=== PATIENT | male | born 1980 | race Caucasian/White ===

== ENCOUNTER 2024-08-31 13:41 | Inpatient (IN) | payer MEDICAID ==
[~2024-08-31] VITALS: Ht 163.8 cm; Wt 110.3 kg
[2024-08-31 13:46] VITALS: BP 135/80; PULSE 59; RESP 16; TEMP 98.5; O2SAT 99
[2024-08-31] MEDS: ONDANSETRON 4 MG/2 ML VIAL IVP ONE (14:16)
[2024-08-31] MEDS: NACL 0.9% 1,000 ML IV ONE (14:18)
[2024-08-31 14:41] LABS: BASOPHILS % (AUTO) 0.1 % (0.0-2.0); HEMOGLOBIN 16.6 g/dL (12.0-18.0); MEAN CORPUSCULAR HEMOGLOBIN 30 pg (27-31); MEAN CORPUSCULAR HGB CONC 34 g/dL (33-37); MEAN CORPUSCULAR VOLUME 89.1 fL (80-94); MONOCYTES # (AUTO) 0.2 K/uL (0.8-1.0); MONOCYTES % (AUTO) 1.9 % (1.7-9.3); NEUTROPHILS # (AUTO) 11.2 K/uL (1.8-7.7); PLATELET COUNT (AUTO) 344 K/uL (140-450); RED BLOOD CELL COUNT(AUTO) 5.51 MIL/uL (4.20-6.10); RED CELL DISTRIBUTION WIDTH 14.4 % (11.6-13.7); WHITE BLOOD COUNT (AUTO) 12.5 K/uL (4.8-10.8)
[2024-08-31 14:44] LABS: CALCIUM 9.3 mg/dL (8.5-10.1); CARBON DIOXIDE 28.8 mmol/L (21-32); CREATININE 1.1 mg/dL (0.6-1.3); POTASSIUM 3.8 mmol/L (3.5-5.1)
[2024-08-31 14:47] LABS: INR 0.98 (0.8-1.2); PARTIAL THROMBOPLASTIN TIME 23.9 secs (22-35.6); PROTHROMBIN TIME 10.3 secs (10.8-13.4)
[2024-08-31 14:59] LABS: ALANINE AMINOTRANSFERASE 563 U/L (12-78); ALBUMIN 3.9 g/dL (3.4-5.0); ALKALINE PHOSPHATASE 251 U/L (50-136); ASPARTATE AMINOTRANSFERASE 222 U/L (15-37); BILIRUBIN,DIRECT 1.3 mg/dL (0.0-0.3); LIPASE 2910 U/L (16-77); TOTAL BILIRUBIN 1.8 mg/dL (0.0-1.0); TOTAL PROTEIN, SERUM 7.9 g/dL (6.4-8.2)
[2024-08-31] MEDS: MORPHINE SULFATE 4 MG/ML SYR IVP ONE (15:03)
[2024-08-31] MEDS ORDERED: LORazepam 1 MG TAB PO PRN (15:55)
[2024-08-31] MEDS ORDERED: MAG SULF 2000 MG/WATER PREMIX 50 ML IV PRN (15:55)
[2024-08-31] MEDS ORDERED: DEXTROSE 50% 50 ML SYR IVP PRN (16:00)
[2024-08-31] MEDS: NACL 0.9% 1,000 ML IV SCH (16:14)
[2024-08-31] MEDS: BLOOD GLUCOSE MONITORING 1 DEV DEV FS SCH (17:10)
[2024-08-31] MEDS: INSULIN LISPRO SLIDING SCALE 100 UNITS/ML VIAL SUBQ PRN (17:15)
[2024-08-31 18:51] LABS: CHOL/HDL RATIO 5.1 (1-4.5)
[2024-08-31 20:30] VITALS: BP 130/79; PULSE 70; RESP 18; TEMP 97.3; O2SAT 98
[2024-08-31] MEDS: PIPERACILLIN/TAZOBACTAM 2.25 GM in DEXTROSE 5% 50 ML IV SCH (21:17)
[2024-08-31] MEDS: PIPERACILLIN/TAZOBACTAM 2.25 GM VIAL IV ONE (21:23)
[2024-09-01] VITALS (7 sets, daily range): BP systolic 106–138; BP diastolic 60–78; PULSE 64–97; RESP 18; TEMP 97.4–99.8; O2SAT 96–99
[2024-09-01] MEDS: MORPHINE SULFATE 2 MG/ML SYR IVP PRN (00:07)
[2024-09-01] MEDS: PIPERACILLIN/TAZOBACTAM 2.25 GM VIAL IV ONE (04:26)
[2024-09-01 06:52] LABS: BASOPHILS % (AUTO) 0.2 % (0.0-2.0); EOSINOPHILS % (AUTO) 0.1 % (0.0-4.0); HEMATOCRIT 44.1 % (36-52); LYMPHOCYTES # (AUTO) 1.6 K/uL (2.0-11.5); LYMPHOCYTES % (AUTO) 14.3 % (20.5-51.1); MEAN CORPUSCULAR HEMOGLOBIN 30 pg (27-31); MEAN CORPUSCULAR HGB CONC 34 g/dL (33-37); MEAN CORPUSCULAR VOLUME 87.7 fL (80-94); MONOCYTES # (AUTO) 0.7 K/uL (0.8-1.0); MONOCYTES % (AUTO) 6.5 % (1.7-9.3); NEUTROPHILS # (AUTO) 8.9 K/uL (1.8-7.7); NEUTROPHILS % (AUTO) 78.9 % (42.2-75.2); PLATELET COUNT (AUTO) 320 K/uL (140-450); RED BLOOD CELL COUNT(AUTO) 5.03 MIL/uL (4.20-6.10); RED CELL DISTRIBUTION WIDTH 14.5 % (11.6-13.7); WHITE BLOOD COUNT (AUTO) 11.3 K/uL (4.8-10.8)
[2024-09-01 07:16] LABS: ANION GAP 13.1 (8-16); CARBON DIOXIDE 24.3 mmol/L (21-32); CREATININE 0.9 mg/dL (0.6-1.3); PHOSPHORUS 3.2 mg/dL (2.5-4.9); POTASSIUM 3.4 mmol/L (3.5-5.1); TOTAL BILIRUBIN 1.1 mg/dL (0.0-1.0); TOTAL PROTEIN, SERUM 6.4 g/dL (6.4-8.2)
[2024-09-01] MEDS: PIPERACILLIN/TAZOBACTAM 3.375 GM in DEXTROSE 5% 50 ML IV SCH (12:12)
[2024-09-01] MEDS ORDERED: HYDROmorphone 1 MG/ML AMP IVP PRN (12:45)
[2024-09-01] MEDS: LACTATED RINGERS 1,000 ML IV SCH (13:04)
[2024-09-01] MEDS: KCL 20 MEQ IN 100 mL PREMIX 200 ML IV PRN (18:27)
[2024-09-01] MEDS ORDERED: VANCOMYCIN PER PHARMACY MC PRN (18:55)
[2024-09-02] VITALS: BP 115/72; PULSE 87; PULSE 93; RESP 19; TEMP 98.9; O2SAT 95
[2024-09-02] MEDS: VANCOMYCIN 1GM/DEXT 5% PREMIX 200 ML IV ONE (00:28)
[2024-09-02] MEDS: VANCOMYCIN 1,000 MG VIAL ONE (02:50)
[2024-09-02 04:00] VITALS: BP 103/62; PULSE 91; PULSE 92; RESP 17; TEMP 101.8; O2SAT 95
[2024-09-02] MEDS: ACETAMINOPHEN 325 MG TAB PO PRN (04:21)
[2024-09-02 06:47] LABS: BASOPHILS % (AUTO) 0.3 % (0.0-2.0); HEMATOCRIT 41.7 % (36-52); HEMOGLOBIN 14.1 g/dL (12.0-18.0); LYMPHOCYTES # (AUTO) 1.8 K/uL (2.0-11.5); LYMPHOCYTES % (AUTO) 11.1 % (20.5-51.1); MEAN CORPUSCULAR HEMOGLOBIN 30 pg (27-31); MEAN CORPUSCULAR HGB CONC 34 g/dL (33-37); MEAN CORPUSCULAR VOLUME 88.8 fL (80-94); MONOCYTES # (AUTO) 1.4 K/uL (0.8-1.0); MONOCYTES % (AUTO) 8.7 % (1.7-9.3); NEUTROPHILS # (AUTO) 12.9 K/uL (1.8-7.7); NEUTROPHILS % (AUTO) 79.9 % (42.2-75.2); PLATELET COUNT (AUTO) 294 K/uL (140-450); RED CELL DISTRIBUTION WIDTH 14.4 % (11.6-13.7); WHITE BLOOD COUNT (AUTO) 16.2 K/uL (4.8-10.8)
[2024-09-02 07:18] LABS: ALBUMIN 2.7 g/dL (3.4-5.0); ANION GAP 10.8 (8-16); CALCIUM 8.2 mg/dL (8.5-10.1); CARBON DIOXIDE 27.6 mmol/L (21-32); CREATININE 1.1 mg/dL (0.6-1.3); MAGNESIUM 1.7 mg/dL (1.8-2.4); PHOSPHORUS 3.1 mg/dL (2.5-4.9); POTASSIUM 3.4 mmol/L (3.5-5.1); TOTAL PROTEIN, SERUM 6.3 g/dL (6.4-8.2)
[2024-09-02 08:00] VITALS: BP 117/64; PULSE 78; PULSE 87; PULSE 93; RESP 18; TEMP 97.7; O2SAT 95; O2SAT 97
[2024-09-02] MEDS: PANTOPRAZOLE 40 MG INJ VIAL IVP SCH (09:12)
[2024-09-02] MEDS: MAGNESIUM OXIDE 400 MG TAB PO PRN (11:01)
[2024-09-02] MEDS: POTASSIUM CHLORIDE 10 MEQ TABER PO PRN (11:01)
[2024-09-02] MEDS: VANCOMYCIN 1.25GM PREMIX 250 ML IV SCH (11:02)
[2024-09-02 12:00] VITALS: BP 114/70; PULSE 84; PULSE 91; RESP 18; TEMP 100; O2SAT 95
[2024-09-02] MEDS ORDERED: DESFLURANE 240 ML BTL INH ONE (16:32)
[2024-09-02] MEDS: MIDAZOLAM 2 MG/2 ML VIAL ONE (16:48)
[2024-09-02] MEDS: ROCURONIUM 50 MG/5 ML VIAL IV ONE ×2 (16:48→17:32)
[2024-09-02] MEDS: PROPOFOL 200 MG/20 ML VIAL IV ONE (16:48)
[2024-09-02] MEDS: fentaNYL citrate 0.05 MG/ML VIAL ONE ×2 (16:48→17:31)
[2024-09-02] MEDS: LIDOCAINE/EPI 1% 1:100000 20 ML VIAL INJ ONE (16:49)
[2024-09-02] MEDS: DEXAMETHASONE 4 MG/ML VIAL ONE (17:01)
[2024-09-02] MEDS: SUGAMMADEX SODIUM 200 MG/2 ML VIAL IV ONE (17:31)
[2024-09-02] MEDS: ACETAMINOPHEN 100 ML IV ONE (18:09)
[2024-09-02] MEDS: ACETAMINOPHEN 100 ML IV SCH (18:30)
[2024-09-02 20:00] VITALS: BP 114/57; PULSE 76; RESP 16; RESP 18; TEMP 96.8; O2SAT 96
[2024-09-02 20:16] VITALS: PULSE 78
[2024-09-03] VITALS (8 sets, daily range): BP systolic 104–125; BP diastolic 59–70; PULSE 63–88; RESP 16–19; TEMP 97.9–98.8; O2SAT 95–98
[2024-09-03] MEDS: HYDROcodone/APAP 5/325 MG 1 TAB TAB PO PRN (04:46)
[2024-09-03 06:08] LABS: HEPATITIS A ANTIBODY IGM Negative (Negative); HEPATITIS B CORE AB TOTAL Negative (Negative); HEPATITIS B CORE, IGM Negative (Negative); HEPATITIS B SURFACE ANTIBODY Non Reactive (.); HEPATITIS B SURFACE ANTIGEN Negative (Negative); HEPATITIS C VIRUS ANTIBODY Non Reactive (Non Reactive)
[2024-09-03 06:57] LABS: BASOPHILS % (AUTO) 0.1 % (0.0-2.0); HEMATOCRIT 38.2 % (36-52); LYMPHOCYTES # (AUTO) 1.4 K/uL (2.0-11.5); LYMPHOCYTES % (AUTO) 8.7 % (20.5-51.1); MEAN CORPUSCULAR HEMOGLOBIN 30 pg (27-31); MEAN CORPUSCULAR HGB CONC 34 g/dL (33-37); MEAN CORPUSCULAR VOLUME 88.3 fL (80-94); MONOCYTES # (AUTO) 1.1 K/uL (0.8-1.0); MONOCYTES % (AUTO) 6.6 % (1.7-9.3); NEUTROPHILS # (AUTO) 13.6 K/uL (1.8-7.7); NEUTROPHILS % (AUTO) 84.6 % (42.2-75.2); PLATELET COUNT (AUTO) 264 K/uL (140-450); RED BLOOD CELL COUNT(AUTO) 4.32 MIL/uL (4.20-6.10); RED CELL DISTRIBUTION WIDTH 14.3 % (11.6-13.7)
[2024-09-03 07:04] LABS: ALBUMIN 2.3 g/dL (3.4-5.0); ANION GAP 9.3 (8-16); CALCIUM 7.9 mg/dL (8.5-10.1); CARBON DIOXIDE 26.5 mmol/L (21-32); CREATININE 0.9 mg/dL (0.6-1.3); MAGNESIUM 2.1 mg/dL (1.8-2.4); PHOSPHORUS 2.7 mg/dL (2.5-4.9); POTASSIUM 3.8 mmol/L (3.5-5.1); TOTAL BILIRUBIN 0.9 mg/dL (0.0-1.0)
[2024-09-03 16:26] LABS: HEPATITIS A ANTIBODY TOTAL Positive (Negative)
[2024-09-04] VITALS (9 sets, daily range): BP systolic 102–126; BP diastolic 55–77; PULSE 73–89; RESP 18–19; TEMP 97.1–100.1; O2SAT 96–98
[2024-09-04 06:45] LABS: BASOPHILS % (AUTO) 0.3 % (0.0-2.0); EOSINOPHILS % (AUTO) 0.1 % (0.0-4.0); HEMATOCRIT 37.6 % (36-52); HEMOGLOBIN 12.8 g/dL (12.0-18.0); LYMPHOCYTES # (AUTO) 2.4 K/uL (2.0-11.5); LYMPHOCYTES % (AUTO) 17.4 % (20.5-51.1); MEAN CORPUSCULAR HEMOGLOBIN 30 pg (27-31); MEAN CORPUSCULAR HGB CONC 34 g/dL (33-37); MEAN CORPUSCULAR VOLUME 88.6 fL (80-94); MONOCYTES # (AUTO) 1.2 K/uL (0.8-1.0); MONOCYTES % (AUTO) 8.5 % (1.7-9.3); NEUTROPHILS # (AUTO) 10.1 K/uL (1.8-7.7); NEUTROPHILS % (AUTO) 73.7 % (42.2-75.2); PLATELET COUNT (AUTO) 329 K/uL (140-450); RED BLOOD CELL COUNT(AUTO) 4.25 MIL/uL (4.20-6.10); WHITE BLOOD COUNT (AUTO) 13.7 K/uL (4.8-10.8)
[2024-09-04 07:26] LABS: ALBUMIN 2.2 g/dL (3.4-5.0); ANION GAP 11.3 (8-16); CARBON DIOXIDE 25.3 mmol/L (21-32); CREATININE 0.9 mg/dL (0.6-1.3); MAGNESIUM 1.8 mg/dL (1.8-2.4); PHOSPHORUS 3.2 mg/dL (2.5-4.9); POTASSIUM 3.6 mmol/L (3.5-5.1); TOTAL BILIRUBIN 0.7 mg/dL (0.0-1.0); TOTAL PROTEIN, SERUM 6.1 g/dL (6.4-8.2)
[2024-09-04] MEDS ORDERED: DEXTROSE 50% 50 ML SYR IVP PRN (10:45)
[2024-09-05 00:01] VITALS: BP 115/78; PULSE 82; RESP 18; TEMP 97; O2SAT 98
[2024-09-05 04:00] VITALS: BP 119/74; PULSE 73; RESP 19; TEMP 97.5; O2SAT 96
[2024-09-05 06:52] LABS: BASOPHILS % (AUTO) 0.3 % (0.0-2.0); EOSINOPHILS % (AUTO) 0.2 % (0.0-4.0); HEMATOCRIT 38.4 % (36-52); HEMOGLOBIN 12.9 g/dL (12.0-18.0); LYMPHOCYTES # (AUTO) 2.6 K/uL (2.0-11.5); LYMPHOCYTES % (AUTO) 16.2 % (20.5-51.1); MEAN CORPUSCULAR HEMOGLOBIN 30 pg (27-31); MEAN CORPUSCULAR HGB CONC 34 g/dL (33-37); MEAN CORPUSCULAR VOLUME 88.9 fL (80-94); MONOCYTES # (AUTO) 1.4 K/uL (0.8-1.0); MONOCYTES % (AUTO) 8.9 % (1.7-9.3); NEUTROPHILS # (AUTO) 11.9 K/uL (1.8-7.7); NEUTROPHILS % (AUTO) 74.4 % (42.2-75.2); PLATELET COUNT (AUTO) 381 K/uL (140-450); RED BLOOD CELL COUNT(AUTO) 4.32 MIL/uL (4.20-6.10); RED CELL DISTRIBUTION WIDTH 13.6 % (11.6-13.7)
[2024-09-05 07:21] LABS: ALBUMIN 2.3 g/dL (3.4-5.0); ANION GAP 12.6 (8-16); CALCIUM 8.6 mg/dL (8.5-10.1); CARBON DIOXIDE 26.9 mmol/L (21-32); CREATININE 1.1 mg/dL (0.6-1.3); PHOSPHORUS 3.8 mg/dL (2.5-4.9); POTASSIUM 3.5 mmol/L (3.5-5.1); TOTAL BILIRUBIN 0.6 mg/dL (0.0-1.0); TOTAL PROTEIN, SERUM 6.4 g/dL (6.4-8.2)
[2024-09-05 08:00] VITALS: BP 112/67; PULSE 74; PULSE 77; PULSE 84; RESP 19; RESP 20; TEMP 97.7; O2SAT 100; O2SAT 96
[2024-09-05 12:00] VITALS: BP 115/71; PULSE 71; PULSE 75; RESP 20; TEMP 97.6; O2SAT 100
[2024-09-05 16:00] VITALS: BP 120/87; PULSE 78; PULSE 81; RESP 20; TEMP 98.2; O2SAT 98
[2024-09-05 20:00] VITALS: BP 127/74; PULSE 79; PULSE 82; RESP 19; TEMP 99; O2SAT 96; O2SAT 99
[2024-09-06] VITALS (9 sets, daily range): BP systolic 109–138; BP diastolic 64–74; PULSE 71–89; RESP 18–20; TEMP 96.9–98.5; O2SAT 20–100
[2024-09-06 06:08] LABS: BASOPHILS % (AUTO) 0.3 % (0.0-2.0); EOSINOPHILS # (AUTO) 0.1 K/uL (0-0.4); EOSINOPHILS % (AUTO) 0.3 % (0.0-4.0); HEMATOCRIT 39.4 % (36-52); HEMOGLOBIN 13.3 g/dL (12.0-18.0); LYMPHOCYTES # (AUTO) 2.1 K/uL (2.0-11.5); LYMPHOCYTES % (AUTO) 13.5 % (20.5-51.1); MEAN CORPUSCULAR HEMOGLOBIN 30 pg (27-31); MEAN CORPUSCULAR HGB CONC 34 g/dL (33-37); MEAN CORPUSCULAR VOLUME 88.8 fL (80-94); MONOCYTES # (AUTO) 1.2 K/uL (0.8-1.0); MONOCYTES % (AUTO) 7.7 % (1.7-9.3); NEUTROPHILS # (AUTO) 12.2 K/uL (1.8-7.7); NEUTROPHILS % (AUTO) 78.2 % (42.2-75.2); PLATELET COUNT (AUTO) 439 K/uL (140-450); RED BLOOD CELL COUNT(AUTO) 4.44 MIL/uL (4.20-6.10); WHITE BLOOD COUNT (AUTO) 15.6 K/uL (4.8-10.8)
[2024-09-06 06:15] LABS: ALBUMIN 2.3 g/dL (3.4-5.0); ANION GAP 13.1 (8-16); CALCIUM 8.6 mg/dL (8.5-10.1); CARBON DIOXIDE 24.6 mmol/L (21-32); CREATININE 0.9 mg/dL (0.6-1.3); MAGNESIUM 1.9 mg/dL (1.8-2.4); PHOSPHORUS 3.9 mg/dL (2.5-4.9); POTASSIUM 3.7 mmol/L (3.5-5.1); TOTAL BILIRUBIN 0.5 mg/dL (0.0-1.0); TOTAL PROTEIN, SERUM 6.8 g/dL (6.4-8.2)
[2024-09-06] MEDS ORDERED: DEXTROSE 50% 50 ML SYR IVP PRN (09:10)
[2024-09-06] MEDS ORDERED: INSULIN LISPRO SLIDING SCALE 100 UNITS/ML VIAL SUBQ PRN (09:10)
[2024-09-06] MEDS ORDERED: BLOOD GLUCOSE MONITORING 1 DEV DEV FS SCH (11:30)
[2024-09-07] VITALS (9 sets, daily range): BP systolic 102–124; BP diastolic 61–70; PULSE 70–89; RESP 17–19; TEMP 97.5–98.5; O2SAT 95–98
[2024-09-07 06:19] LABS: BASOPHILS % (AUTO) 0.3 % (0.0-2.0); EOSINOPHILS # (AUTO) 0.1 K/uL (0-0.4); EOSINOPHILS % (AUTO) 0.7 % (0.0-4.0); HEMATOCRIT 38.7 % (36-52); HEMOGLOBIN 13.1 g/dL (12.0-18.0); LYMPHOCYTES % (AUTO) 14.4 % (20.5-51.1); MEAN CORPUSCULAR HEMOGLOBIN 30 pg (27-31); MEAN CORPUSCULAR HGB CONC 34 g/dL (33-37); MEAN CORPUSCULAR VOLUME 87.7 fL (80-94); MONOCYTES # (AUTO) 1.2 K/uL (0.8-1.0); MONOCYTES % (AUTO) 8.3 % (1.7-9.3); NEUTROPHILS # (AUTO) 10.6 K/uL (1.8-7.7); NEUTROPHILS % (AUTO) 76.3 % (42.2-75.2); PLATELET COUNT (AUTO) 503 K/uL (140-450); RED BLOOD CELL COUNT(AUTO) 4.41 MIL/uL (4.20-6.10); RED CELL DISTRIBUTION WIDTH 13.6 % (11.6-13.7); WHITE BLOOD COUNT (AUTO) 13.9 K/uL (4.8-10.8)
[2024-09-07 06:45] LABS: ALBUMIN 2.4 g/dL (3.4-5.0); ANION GAP 11.9 (8-16); CALCIUM 8.7 mg/dL (8.5-10.1); CARBON DIOXIDE 25.8 mmol/L (21-32); CREATININE 0.9 mg/dL (0.6-1.3); PHOSPHORUS 3.7 mg/dL (2.5-4.9); POTASSIUM 3.7 mmol/L (3.5-5.1); TOTAL BILIRUBIN 0.5 mg/dL (0.0-1.0); TOTAL PROTEIN, SERUM 6.7 g/dL (6.4-8.2)
[2024-09-07] MEDS: PIPERACILLIN/TAZOBACTAM 3.375 GM in DEXTROSE 5% 50 ML IV SCH (12:33)
[2024-09-08] VITALS: BP 107/69; PULSE 70; PULSE 76; RESP 16; TEMP 97.3; O2SAT 97
[2024-09-08 04:00] VITALS: BP 112/64; PULSE 63; PULSE 68; RESP 19; TEMP 97.2; O2SAT 98
[2024-09-08 06:39] LABS: BASOPHILS # (AUTO) 0.1 K/uL (0.00-0.22); BASOPHILS % (AUTO) 0.7 % (0.0-2.0); EOSINOPHILS # (AUTO) 0.2 K/uL (0-0.4); EOSINOPHILS % (AUTO) 1.8 % (0.0-4.0); HEMATOCRIT 38.7 % (36-52); HEMOGLOBIN 13.2 g/dL (12.0-18.0); LYMPHOCYTES # (AUTO) 2.4 K/uL (2.0-11.5); LYMPHOCYTES % (AUTO) 22.7 % (20.5-51.1); MEAN CORPUSCULAR HEMOGLOBIN 30 pg (27-31); MEAN CORPUSCULAR HGB CONC 34 g/dL (33-37); MEAN CORPUSCULAR VOLUME 88.3 fL (80-94); NEUTROPHILS # (AUTO) 7.1 K/uL (1.8-7.7); NEUTROPHILS % (AUTO) 65.8 % (42.2-75.2); PLATELET COUNT (AUTO) 524 K/uL (140-450); RED BLOOD CELL COUNT(AUTO) 4.38 MIL/uL (4.20-6.10); RED CELL DISTRIBUTION WIDTH 13.4 % (11.6-13.7); WHITE BLOOD COUNT (AUTO) 10.7 K/uL (4.8-10.8)
[2024-09-08 08:00] VITALS: BP 115/67; PULSE 53; PULSE 54; RESP 18; TEMP 97.1; O2SAT 98
[2024-09-08 08:41] LABS: ANION GAP 12.9 (8-16); CALCIUM 8.7 mg/dL (8.5-10.1); CARBON DIOXIDE 25.9 mmol/L (21-32); CREATININE 0.9 mg/dL (0.6-1.3); POTASSIUM 3.8 mmol/L (3.5-5.1)
[2024-09-08 08:47] LABS: ALBUMIN 2.3 g/dL (3.4-5.0); PHOSPHORUS 3.3 mg/dL (2.5-4.9); TOTAL BILIRUBIN 0.4 mg/dL (0.0-1.0); TOTAL PROTEIN, SERUM 6.6 g/dL (6.4-8.2)
[2024-09-08 09:54] VITALS: BP 115/67; PULSE 53; RESP 18; TEMP 97.1
== END 2024-09-08 11:40 | disposition home or self-care (01) | DRG 263 ==
LOC: MED 13:41 → MTU 15:52
PROVIDERS: ADMIT Student in an Organized Health Care Education/Training Program; ATTEND Student in an Organized Health Care Education/Training Program
PROC: 0FT44ZZ Resection of Gallbladder, Percutaneous Endoscopic Approach (ICD-10-PCS; principal; 2024-09-08)
PROC: BF121ZZ Fluoroscopy of Gallbladder using Low Osmolar Contrast (ICD-10-PCS; 2024-09-08)
DX: K85.10 Biliary acute pancreatitis without necrosis or infection (principal); K80.00 Calculus of gallbladder with acute cholecystitis without obstruction; D72.829 Elevated white blood cell count, unspecified; E87.6 Hypokalemia; R74.01 Elevation of levels of liver transaminase levels; E78.2 Mixed hyperlipidemia; E83.42 Hypomagnesemia; E66.9 Obesity, unspecified; Z68.41 Body mass index [BMI] 40.0-44.9, adult
CPT/HCPCS: 36415; 71045; 74018; 74150; 76705; 80048; 80053; 80076; 82948; 83605; 83690; 83735; 83880; 84100; 84484; 85025; 85610; 85730; 86704; 86706; 86708; 86709; 86803; 86886; 86900; 86901; 87040; 87081; 87340; 88304; 93005; 99285; C1758; J1100; J1815; J2001; J2250; J2270; J2405; J2470; J2543; J2704; J3010; J3370; J3372; J3480; J3490; J7030; J7060; Q0092; Q9967